=== PATIENT | female | born 1980 | race Caucasian/White ===

== ENCOUNTER 2016-06-10 12:25 | Outpatient (CLI) | payer MEDICAID ==
[2016-06-10] MEDS ORDERED: LACTATED RINGERS 500 ML IV ONE (13:26)
[2016-06-10 14:55] LABS: Bacteria,Urine 1+ /HPF (Negative); Bilirubin,Urine NEG (Negative); Blood,Urine NEG (Negative); Ketones,Urine TR mg/dL (Negative); Leukocyte Esterase,Urine NEG (Negative); Mucus,Urine FEW /HPF; Nitrite,Urine POS (Negative); Protein,Urine <15 mg/dL mg/dL (Negative); Urobilinogen,Urine < 2.0 mg/dL (<2.0)
== END 2016-06-10 15:53 | disposition home or self-care (01) ==
LOC: TRG 12:25
PROVIDERS: ATTEND Obstetrics & Gynecology Gynecology
DX: O47.03 False labor before 37 completed weeks of gestation, third trimester (principal); Z3A.31 31 weeks gestation of pregnancy
CPT/HCPCS: 59025; 81001; J7120

== ENCOUNTER 2016-09-15 21:53 | Emergency (ER) | payer MEDICAID ==
[2016-09-16 07:51] VITALS: BP 112/82
--- NOTE | 2016-09-16 08:51 | Emergency Department Report ---
ED ENT HPI - General Chief complaint: Sore Throat Stated complaint: THROAT PAIN Time Seen by Provider: 09/16/16 08:06 Source: patient Mode of arrival: Ambulatory Limitations: No Limitations - History of Present Illness Initial comments: PT c/o sore throat x 4 days. PT states someone else at home as been sick with sore throat and cough. Pt denies other symptoms like fever, cough, congestion. PT has not taken anything for her symptoms. MD complaint: sore throat Onset/Timin -: Gradual, days(s) Severity scale (0 -10): 6 Consistency: constant Improves with: none Worsens with: swallowing, eating Associated Symptoms: pain with swallowing, sore throat. denies: fever, cough - Related Data Home Medications Medication Instructions Recorded Confirmed Last Taken metroNIDAZOLE [Flagyl] 500 mg PO BID 06/25/15 07/25/16 Unknown Previous Rx's Medication Instructions Recorded Last Taken Type Ferrous Sulfate [Feosol 325 MG tab] 325 mg PO BID #60 tablet 07/26/16 Unknown Rx Ibuprofen [Motrin 600 MG tab] 600 mg PO Q6HR #30 tablet 07/26/16 Unknown Rx Vit-Fe Fumar-FA [ 1 each PO QDAY #30 tablet 07/26/16 Unknown Rx Vitamin] Ibuprofen [Motrin] 600 mg PO Q8H PRN #20 tablet 09/16/16 Unknown Rx Allergies Allergy/AdvReac Type Severity Reaction Status Date / Time No Known Allergies Allergy Verified 06/21/15 09:56 ED Dental HPI - General Chief complaint: Sore Throat Stated complaint: THROAT PAIN Time Seen by Provider: 09/16/16 08:06 Source: patient Mode of arrival: Ambulatory Limitations: No Limitations - Related Data Home Medications Medication Instructions Recorded Confirmed Last Taken metroNIDAZOLE [Flagyl] 500 mg PO BID 06/25/15 07/25/16 Unknown Previous Rx's Medication Instructions Recorded Last Taken Type Ferrous Sulfate [Feosol 325 MG tab] 325 mg PO BID #60 tablet 07/26/16 Unknown Rx Ibuprofen [Motrin 600 MG tab] 600 mg PO Q6HR #30 tablet 07/26/16 Unknown Rx Vit-Fe Fumar-FA [ 1 each PO QDAY #30 tablet 07/26/16 Unknown Rx Vitamin] Ibuprofen [Motrin] 600 mg PO Q8H PRN #20 tablet 09/16/16 Unknown Rx Allergies Allergy/AdvReac Type Severity Reaction Status Date / Time No Known Allergies Allergy Verified 06/21/15 09:56 ED Review of Systems ROS: Stated complaint: THROAT PAIN Other details as noted in HPI Comment: All other systems reviewed and negative Constitutional: denies: chills, fever ENT: throat pain. denies: ear pain, congestion Respiratory: denies: cough Cardiovascular: denies: chest pain ED Past Medical Hx - Past Medical History Previous Medical History?: Yes Hx Hypertension: No Hx Congestive Heart Failure: No Hx Diabetes: No Hx Deep Vein Thrombosis: No Hx Renal Disease: No Hx Sickle Cell Disease: No Hx Seizures: No Hx Asthma: No Hx COPD: No Additional medical history: bacterial meningitis - Surgical History Past Surgical History?: No - Social History Smoking Status: Never Smoker Substance Use Type: None - Medications Home Medications: Home Medications Medication Instructions Recorded Confirmed Last Taken Type metroNIDAZOLE [Flagyl] 500 mg PO BID 06/25/15 07/25/16 Unknown History Ferrous Sulfate [Feosol 325 MG tab] 325 mg PO BID #60 tablet 07/26/16 Unknown Rx Ibuprofen [Motrin 600 MG tab] 600 mg PO Q6HR #30 tablet 07/26/16 Unknown Rx Vit-Fe Fumar-FA [ 1 each PO QDAY #30 tablet 07/26/16 Unknown Rx Vitamin] Ibuprofen [Motrin] 600 mg PO Q8H PRN #20 tablet 09/16/16 Unknown Rx ED Physical Exam - General Limitations: No Limitations General appearance: alert, in no apparent distress - Head Head exam: Present: atraumatic, normocephalic, normal inspection - Eye Eye exam: Present: normal appearance, PERRL, EOMI. Absent: conjunctival injection Pupils: Present: normal accommodation - ENT ENT exam: Present: normal exam, normal orophraynx, mucous membranes moist, TM's normal bilaterally, normal external ear exam - Expanded ENT Exam Expanded Mouth exam: Absent: drooling, trismus Throat exam: Negative: tonsillar erythema, tonsillomegaly, tonsillar exudate, R peritonsillar mass, L peritonsillar mass - Neck Neck exam: Present: normal inspection - Respiratory Respiratory exam: Present: normal lung sounds bilaterally. Absent: respiratory distress, wheezes, chest wall tenderness - Cardiovascular Cardiovascular Exam: Present: regular rate, normal rhythm, normal heart sounds - Extremities Exam Extremities exam: Present: normal inspection, full ROM, normal capillary refill - Back Exam Back exam: Present: normal inspection - Neurological Exam Neurological exam: Present: alert, oriented X3 - Psychiatric Psychiatric exam: Present: normal affect, normal mood - Skin Skin exam: Present: warm, dry, intact, normal color ED Course Vital Signs 09/15/16 09/16/16 22:20 07:36 Temperature 97.8 F 97.5 F L Pulse Rate 82 62 Respiratory 18 18 Rate Blood Pressure 108/44 112/82 O2 Sat by Pulse 100 98 Oximetry - Reevaluation(s) Reevaluation #1: 09/16/16 09:20 PT's mother aware of rapid strep results and plan of care. No questions at this time. - Pulse Oximetry Interpretation Digit-Finger Initial Pulse Oximetry Readin Actions Taken: none ED Medical Decision Making - Differential Diagnosis strep pharyngitis, uri Critical Care Time: No Critical care attestation.: If time is entered above; I have spent that time in minutes in the direct care of this critically ill patient, excluding procedure time. ED Disposition Clinical Impression: Pharyngitis Qualifiers: Pharyngitis/tonsillitis etiology: unspecified etiology Qualified Code(s): J02.9 - Acute pharyngitis, unspecified Disposition: DC- TO HOME OR SELFCARE Is pt being admited?: No Does the pt Need Aspirin: No Condition: Stable Instructions: Pharyngitis (ED) Prescriptions: Ibuprofen [Motrin] 600 mg PO Q8H PRN #20 tablet PRN Reason: Pain Referrals: PRIMARY MD RAFFI [Primary Care Provider] - 3-5 Days LUANA OSULLIVAN MD [Staff Physician] - 3-5 Days [facility] [Outside] - 3-5 Days Forms: Work/School Release Form(ED) Time of Disposition: 09:21
[2016-09-16] MEDS ORDERED: TYLENOL PO ONE (08:59)
== END 2016-09-16 09:57 | disposition home or self-care (01) ==
LOC: ED 21:53
DX: J02.9 Acute pharyngitis, unspecified (principal)
CPT/HCPCS: 87116; 87430; 99282

== ENCOUNTER 2017-04-15 08:28 | Emergency (ER) | payer MEDICAID, OTHER ==
[2017-04-15 09:43] VITALS: BP 107/56
[2017-04-15 10:59] LABS: Bacteria,Urine 1+ /HPF (Negative); Bilirubin,Urine NEG (Negative); Blood,Urine NEG (Negative); Color,Urine Yellow (Yellow); Mucus,Urine 1+ /HPF; Nitrite,Urine NEG (Negative); Urobilinogen,Urine < 2.0 mg/dL (<2.0)
--- NOTE | 2017-04-15 11:46 | Emergency Department Report ---
ED Dysuria HPI - HPI Chief Complaint: Urogenital-Female Stated Complaint: BLADDER INFECTION Time Seen by Provider: 04/15/17 11:15 Severity: Mild Symptoms: Dysuria: Yes, Frequency: No, Suprapubic Pain: No, Flank Pain: Yes (l) , Fever: No, Hematuria: No, Abdominal Pain: No, Previous UTI's: Yes ED Review of Systems ROS: Stated complaint: BLADDER INFECTION Other details as noted in HPI Comment: All other systems reviewed and negative Constitutional: no symptoms reported Eyes: as per HPI ENT: as per HPI Respiratory: no symptoms reported Cardiovascular: as per HPI Endocrine: no symptoms reported Gastrointestinal: as per HPI Genitourinary: dysuria, discharge (thick white discharge), other (24 weeks ). denies: frequency, hematuria Musculoskeletal: as per HPI, other Skin: as per HPI Neurological: as per HPI Psychiatric: as per HPI Hematological/Lymphatic: as per HPI ED Past Medical Hx - Past Medical History Previous Medical History?: Yes Hx Hypertension: No Hx Congestive Heart Failure: No Hx Diabetes: No Hx Deep Vein Thrombosis: No Hx Renal Disease: No Hx Sickle Cell Disease: No Hx Seizures: No Hx Asthma: No Hx COPD: No Additional medical history: bacterial meningitis, Vaginal dleivery x 6; patient has been this is the ninth time she has 6 living children and has had 2 miscarriages. She is here with her boyfriend who is 10 years younger than her. - Surgical History Past Surgical History?: No - Social History Smoking Status: Former Smoker Substance Use Type: Non Opiate Pain, Prescribed - Medications Home Medications: Home Medications Medication Instructions Recorded Confirmed Last Taken Type Vit-Fe Fumar-FA [ 1 each PO QDAY #30 tablet 07/26/16 Unknown Rx Vitamin] Dysuria Exam - Exam General: Vital signs noted. No distress. Alert and acting appropriately. Exam: Yes Moist Mucous Membranes, No CVA Tenderness, No Abdominal Tenderness, No Rigidity or Guarding Exam: Pelvic exam completed. There is no adnexal tenderness or mass. No cervical motion motion tenderness. Os is closed. There is a thick white discharge at the cervix. No lesions are noted of the vaginal area or cervix. Labs: Lab Results 04/15/17 Range/Units 10:16 Urine Color Yellow (Yellow) Urine Turbidity Clear (Clear) Urine pH 5.0 (5.0-7.0) Ur Specific [place] 1.022 (1.003-1.030) Urine Protein 30 mg/dl (Negative) mg/dL Urine Glucose (UA) >=500 (Negative) mg/dL Urine Ketones Tr (Negative) mg/dL Urine Blood Neg (Negative) Urine Nitrite Neg (Negative) Urine Bilirubin Neg (Negative) Urine Urobilinogen < 2.0 (<2.0) mg/dL Ur Leukocyte Esterase Tr (Negative) Urine WBC (Auto) 2.0 (0.0-6.0) /HPF Urine RBC (Auto) 3.0 (0.0-6.0) /HPF U Epithel Cells (Auto) 1.0 (0-13.0) /HPF Urine Bacteria (Auto) 1+ (Negative) /HPF Urine Mucus 1+ /HPF ED Course Vital Signs 04/15/17 09:38 Temperature 97.9 F Pulse Rate 103 H Respiratory 18 Rate Blood Pressure 107/56 O2 Sat by Pulse 98 Oximetry - Reevaluation(s) Reevaluation #1: 04/15/17 12:21 Impression presents to the emergency room today with complaints of dysuria on urination. She is 24 weeks . She sees self side CHEMICAL DEPENDENCY NURSE. She last saw him 2 weeks ago. She has also seen well care in [facility] more recently for her dysuria. The total her that she did not have a UTI but they put her on Macrobid. She is take the Macrobid and the symptoms are no better. She also reports thick white vaginal discharge which initially states she said she thought was yeast but then said perhaps it was BV which she has had before. She also reports having been on steroids recently for lice in her home. She denies vaginal bleeding or abdominal pain. heart tones normal. Baby is moving as it normally does. There is no abdominal pain. She does state at times she has pain that radiates from her bladder along her left flank. Denies hematuria. When asked about her partner and symptoms patient very quickly interjected for him that he is not having symptoms. Patient's vital signs are stable she's nontoxic nonfebrile no CVA tenderness non -ill-appearing and ambulatory. Reevaluation #2: 04/15/17 12:34 dc instructions provided ED Medical Decision Making - Medical Decision Making UA noted. Wet prep noted with polymorphic nuclear cells. No yeast. Less than 20% clue cells. GC Chlamydia culture sent. Treat empirically for STD. When patient's reported history of being prone to yeast infections with antibiotics we'll give her 1 Diflucan. - Differential Diagnosis rule out UTI versus STD versus kidney stone Critical care attestation.: If time is entered above; I have spent that time in minutes in the direct care of this critically ill patient, excluding procedure time. ED Disposition Clinical Impression: Vaginitis, Disposition: DC- TO HOME OR SELFCARE Is pt being admited?: No Does the pt Need Aspirin: No Condition: Stable Instructions: Safe Sex (ED), Vaginitis (ED) Additional Instructions: Please see her CHEMICAL DEPENDENCY NURSE doctor this week so that he can reexamine him and make sure that she responded to the medications. Let your CHEMICAL DEPENDENCY NURSE doctor know that she was seen here in the emergency room. He can obtain the test results. Let him know that she will treated here with medications both orally and a shot ; since you failed the macrobid treatment and based on test results. Safe sex. Eat yogurt and drink buttermilk with active yeast cultures to prevent a yeast infection from the antibiotics that you've been on. Take a vitamin no alcohol or drugs Return to the emergency room for vaginal bleeding abdominal pain or fever. Referrals: PRIMARY CARE,MD [Primary Care Provider] - 3-5 Days Time of Disposition: 12:25
[2017-04-15] MEDS ORDERED: ROCEPHIN IM ONE (12:11)
[2017-04-15] MEDS ORDERED: XYLOCAINE 1% MPF 5 mL INFILTRATI ONE (12:11)
[2017-04-15] MEDS ORDERED: ZITHROMAX PO ONE (12:12)
[2017-04-15] MEDS ORDERED: DIFLUCAN PO ONE (13:00)
== END 2017-04-15 13:21 | disposition home or self-care (01) ==
LOC: ED 08:28
DX: O23.592 Infection of other part of genital tract in pregnancy, second trimester (principal); Z3A.24 24 weeks gestation of pregnancy; Z87.891 Personal history of nicotine dependence
CPT/HCPCS: 81001; 87086; 87210; 87591; 96372; 99284; J0696

== ENCOUNTER 2017-06-30 18:20 | Inpatient (IN) | payer OTHER ==
[2017-06-30] MEDS ORDERED: POLYCILLIN/NS 2 GM/100 ML 2 GM/100 ML BAG IV ONE (19:00)
[2017-06-30] MEDS ORDERED: SUBLIMAZE IV PRN (19:00)
[2017-06-30] MEDS ORDERED: LACTATED RINGERS 1,000 ML IV SCH ×2 (19:00→20:00)
[2017-06-30 19:05] LABS: Basophils % (Auto) 0.2 % (0.0-1.8); Eosinophils # (Auto) 0.1 K/mm3 (0.0-0.4); Eosinophils % (Auto) 0.6 % (0.0-4.3); Hematocrit 32.4 % (30.3-42.9); Hemoglobin 10.8 gm/dl (10.1-14.3); Lymphocytes # (Auto) 1.7 K/mm3 (1.2-5.4); Lymphocytes % (Auto) 17.5 % (13.4-35.0); Mean Corpuscular HGB Conc 33 % (30-34); Mean Corpuscular Hemoglobin 27 pg (28-32); Mean Corpuscular Volume 80 fl (79-97); Monocytes # (Auto) 0.9 K/mm3 (0.0-0.8); Platelet Count 273 K/mm3 (140-440); Red Blood Count 4.03 M/mm3 (3.65-5.03); Red Cell Distribution Width 15.2 % (13.2-15.2)
[2017-06-30] MEDS ORDERED: PITOCin/NS 20 UNIT/1000ML DRIP 20,000 MILLIUNITS/1,000 ML BAG IV ONE (19:33)
[2017-06-30] MEDS ORDERED: ePHEDrine SULFATE ONE (19:33)
[2017-06-30] MEDS ORDERED: BRETHINE IVP PRN (19:44)
[2017-06-30] MEDS ORDERED: BRETHINE SUB-Q PRN (19:44)
[2017-06-30] MEDS ORDERED: XYLOCAINE 2% INFILTRATI ONE (19:44)
[2017-06-30] MEDS ORDERED: MINERAL OIL PO PRN (19:44)
[2017-06-30] MEDS ORDERED: ePHEDrine SULFATE IV PRN ×2 (19:44→19:48)
[2017-06-30] MEDS ORDERED: STADOL IV PRN (19:44)
--- NOTE | 2017-06-30 19:44 | History and Physical Report ---
History of Present Illness Date of examination: 06/30/17 Date of admission: 06/30/17 18:38 Chief complaint: Labor History of present illness: Pt is a 36yo HF EDC 07/10/17; EGA 38 4/7 weeks presents to L&D complaining of RUC's q 3-4 mins. She received care at [facility]; however records are not available and GBS is unknown. Past History Past Medical History: no pertinent history Past Surgical History: no surgical history Family/Genetic History: none Social history: no significant social history, single - Obstetrical History Expected Date of Delivery: 07/10/17 Actual Gestation: 38 Week(s) 4 Day(s) : 9 Medications and Allergies Allergies Allergy/AdvReac Type Severity Reaction Status Date / Time No Known Allergies Allergy Verified 06/21/15 09:56 Home Medications Medication Instructions Recorded Confirmed Last Taken Type No Known Home Medications [No 06/30/17 06/30/17 Unknown History Reported Home Medications] Active Meds: Active Medications Fentanyl (Sublimaze) 100 mcg IV Q2H PRN PRN Reason: Labor Pain Last Admin: 06/30/17 19:10 Dose: 100 mcg Lactated Ringer's (Lactated Ringers) 1,000 mls @ 125 mls/hr IV DIRECT PATRICIA Lactated Ringer's (Lactated Ringers) 1,000 mls @ 999 mls/hr IV BOLUS ONE Stop: 06/30/17 21:00 Last Admin: 06/30/17 18:50 Dose: 999 mls/hr Ampicillin Sodium (Polycillin/Ns 2 Gm/100 Ml) 2 gm in 100 mls @ 100 mls/hr IV ONCE ONE; Protocol Stop: 06/30/17 19:59 Review of Systems All systems: negative - Vital Signs Vital signs: Vital Signs Pulse BP 89 110/68 06/30/17 18:34 06/30/17 18:34 Temp Pulse Resp BP Pulse Ox 98.2 F 82 20 101/59 99 06/30/17 18:51 06/30/17 19:42 06/30/17 18:51 06/30/17 19:12 06/30/17 19:42 - Physical Exam Breasts: Positive: deferred Cardiovascular: Regular rate Lungs: Positive: Clear to auscultation Abdomen: Positive: normal appearance Genitourinary (Female): Positive: normal external genitalia Vagina: Positive: normal moisture Uterus: Positive: enlarged Extremities: Positive: normal - Obstetrical FHR: category 1 Uterine Contraction Monitor Mode: External Cervical Dilatation: 5 Cervical Effacement Percentage: 100 station: -2 Uterine Contraction Pattern: Regular Uterine Tone Measurement Phase: Contraction Uterine Contraction Intensity: Moderate Results Result Diagrams: 06/30/17 18:30 Abnormal lab results 06/30/17 Range/Units 18:30 MCH 27 L (28-32) pg Cassia % (Auto) 10.0 H (0.0-7.3) % Cassia # 0.9 H (0.0-0.8) K/mm3 Seg Neutrophils % 71.7 H (40.0-70.0) % All other labs normal. Assessment and Plan - Patient Problems (1) 38 weeks gestation of Onset Date: 06/30/17 Current Visit: No Status: Resolved Plan to address problem: A: IUP @ 38 4/7 weeks in labor Unknown GBS P: Admit to L&D for expectant vaginal delivery IV Ampicillin Obtain records
[2017-06-30] MEDS ORDERED: NARCAN 2 MG/2 ML IV PRN (19:48)
[2017-06-30] MEDS ORDERED: LACTATED RINGERS 1,000 ML IV ONE (20:00)
[2017-06-30] MEDS ORDERED: fentaNYL-BUPIV 2 MCG/ML-0.125% 200 MCG/100 ML BAG EPIDURAL SCH (20:00)
[2017-06-30] MEDS ORDERED: PITOCin/NS 20 UNIT/1000ML DRIP 20 UNITS/1,000 ML BAG IV SCH ×2 (20:00→21:00)
[2017-06-30] MEDS ORDERED: PITOCin/NS 30 UNIT/500ML 30 UNITS/500 ML BAG IV SCH (20:00)
[2017-06-30] MEDS ORDERED: XYLOCAINE MPF 2% ONE (20:05)
--- NOTE | 2017-06-30 20:18 | Anesthesia Consultation ---
Anesthesia Consult and Med Hx Date of service: 06/30/17 - Pulmonary Hx Asthma: No COPD: No Hx Pneumonia: No - Cardiovascular System Hx Hypertension: No - Central Nervous System Hx Seizures: No Hx Psychiatric Problems: No - Endocrine Hx Renal Disease: No Hx End Stage Renal Disease: No Hx Hypothyroidism: No Hx Hyperthyroidism: No - Hematic Hx Anemia: No Hx Sickle Cell Disease: No - Other Systems Hx Alcohol Use: No
--- NOTE | 2017-06-30 20:29 | Procedure Note ---
OB Delivery Note - Delivery Date of Delivery: 06/30/17 Surgeon: REYES BEE Estimated blood loss: 100cc - Vaginal Delivery presentation: vertex Delivery position: OA Intrapartum events: precipitous labor- <3hr Delivery induction: none Delivery augmentation: rupture of membranes Delivery monitor: external FHT, external uterine Route of delivery: Delivery placenta: spontaneous Delivery cord: 3 umbilical vessels Episiotomy: none Delivery laceration: none Anesthesia: epidural Delivery comments: Infant delivered OA and placed on Mom's chest for [id number] bonding and delayed cord clamping - Infant A at 1 minute: 8 at 5 minutes: 9 Gender: Female (2883gms)
[2017-06-30] MEDS ORDERED: ZOFRAN IV PRN (20:31)
[2017-06-30] MEDS ORDERED: PHENERGAN PR PRN (20:31)
[2017-06-30] MEDS ORDERED: LANSINOH TP PRN (20:31)
[2017-06-30] MEDS ORDERED: TUCKS PAD TP PRN (20:31)
[2017-06-30] MEDS ORDERED: PHENERGAN PO PRN (20:31)
[2017-06-30] MEDS ORDERED: DULCOLAX PR PRN (20:31)
[2017-06-30] MEDS ORDERED: TYLENOL PO PRN (20:31)
[2017-06-30] MEDS ORDERED: MILK OF MAGNESIA PO PRN (20:31)
[2017-06-30] MEDS ORDERED: BENADRYL PO PRN (20:31)
[2017-06-30] MEDS ORDERED: SODIUM CHLORIDE FLUSH SYRINGE 10 ML IV NR (21:00)
[2017-06-30] MEDS: NORCO 5/325 PO PRN (23:23)
[2017-06-30] MEDS: MOTRIN PO SCH (23:24)
[2017-06-30] MEDS ORDERED: AMPICILLIN/NS 1 GM/50 ML 1 GM/50 ML BAG IV SCH (23:46)
[2017-07-01] MEDS: MOTRIN PO SCH ×4 (05:12→23:31)
[2017-07-01] MEDS ORDERED: M-M-R II VACCINE SUB-Q ONE (06:00)
[2017-07-01] MEDS ORDERED: BOOSTRIX IM ONE (06:00)
[2017-07-01] MEDS: NORCO 5/325 PO PRN ×3 (07:17→19:56)
--- NOTE | 2017-07-01 09:40 | Progress Note ---
Assessment and Plan - Patient Problems (1) 38 weeks gestation of Onset Date: 06/30/17 Current Visit: No Status: Resolved (2) (normal spontaneous vaginal delivery) Onset Date: 07/01/17 Current Visit: No Status: Resolved Plan to address problem: A: S/P - PPD #1 Doing well Asymptomatic anemia - stable P: May go home tomorrow. Subjective - Subjective Date of service: 07/01/17 Principal diagnosis: s/p - PPD #1 Interval history: Pt is feeling well without complaints. Bleeding improved. Patient reports: appetite normal, voiding normally, pain well controlled, ambulating normally : doing well, nursing well Objective - Vital Signs Latest vital signs: Vital Signs Temp Pulse Resp BP BP Pulse Ox 07/01/17 07:17 16 07/01/17 05:12 18 07/01/17 04:25 98.0 F 62 20 102/56 07/01/17 00:24 18 07/01/17 00:23 18 07/01/17 00:15 98.9 F 69 20 116/53 06/30/17 23:24 18 06/30/17 23:23 18 06/30/17 22:55 98.2 F 70 20 98/52 06/30/17 21:34 70 18 104/55 104/55 06/30/17 21:19 75 18 113/56 113/56 06/30/17 20:49 87 18 113/58 113/58 06/30/17 20:34 77 18 138/50 138/50 06/30/17 20:19 83 117/71 06/30/17 20:17 83 99 06/30/17 20:12 79 100 06/30/17 20:07 75 99 06/30/17 20:02 83 99 06/30/17 19:57 86 99 06/30/17 19:52 80 94 06/30/17 19:50 79 92 06/30/17 19:47 78 100 06/30/17 19:44 93 06/30/17 19:42 82 99 06/30/17 19:12 80 101/59 06/30/17 18:51 98.2 F 100 H 20 94 06/30/17 18:38 100 H 94 06/30/17 18:36 84 95 06/30/17 18:34 89 110/68 Intake and Output 06/30/17 07/01/17 07/01/17 22:59 06:59 14:59 Intake Total 480 Output Total 1000 Balance -520 Intake: Oral 480 Output: Urine 1000 Void 1000 Other: Total, Intake Amount 240 Total, Output Amount 600 Weight 62.596 kg Estimated Blood Loss 100 - Exam Breasts: Present: deferred Cardiovascular: Present: Regular rate Lungs: Present: Clear to auscultation Abdomen: Present: normal appearance Uterus: Present: normal, firm, fundal height below umbilicus Extremities: Present: normal - Labs Labs: Abnormal lab results 06/30/17 Range/Units 18:30 MCH 27 L (28-32) pg Rich % (Auto) 10.0 H (0.0-7.3) % Rich # 0.9 H (0.0-0.8) K/mm3 Seg Neutrophils % 71.7 H (40.0-70.0) % Laboratory Tests 06/30/17 06/30/17 07/01/17 18:30 18:30 09:15 WBC 9.4 RBC 4.03 Hgb 10.8 10.8 Hct 32.4 32.9 MCV 80 MCH 27 L MCHC 33 RDW 15.2 Plt Count 273 Lymph % (Auto) 17.5 Rich % (Auto) 10.0 H Eos % (Auto) 0.6 Baso % (Auto) 0.2 Lymph # 1.7 Rich # 0.9 H Eos # 0.1 Baso # 0.0 Seg Neutrophils % 71.7 H Seg Neutrophils # 6.8 Blood Type O POSITIVE Antibody Screen Negative
[2017-07-01] MEDS ORDERED: PRENATAL VITAMIN PO SCH (10:00)
[2017-07-01 10:19] LABS: Hematocrit 32.9 % (30.3-42.9); Hemoglobin 10.8 gm/dl (10.1-14.3)
[2017-07-01] MEDS: COLACE PO SCH ×2 (10:41→21:26)
[2017-07-01] MEDS: FEOSOL PO SCH ×2 (10:41→21:26)
[2017-07-01] MEDS: SENOKOT S PO SCH ×2 (10:41→23:00)
--- NOTE | 2017-07-01 11:40 | Discharge Summary ---
Providers - Providers Date of Admission: 06/30/17 18:38 Date of discharge: 07/02/17 Attending physician: REYES BEE Primary care physician: REYES BEE Hospitalization Reason for admission: active labor, IUP at term Delivery: Episiotomy: none Laceration: none Other procedures: none complications: none Discharge diagnosis: IUP at term delivered [place] baby: female Hospital course: Unremarkable. Condition at discharge: Good Disposition: DC-01 TO HOME OR SELFCARE - Discharge Diagnoses (1) 38 weeks gestation of Status: Resolved (2) (normal spontaneous vaginal delivery) Status: Resolved Plan - Discharge Medications Prescriptions: Ferrous Sulfate [Feosol 325 MG tab] 325 mg PO BID #60 tablet Ibuprofen [Motrin 600 MG tab] 600 mg PO Q6H #30 tablet Vit-Fe Fumar-FA [ Vitamin] 1 each PO QDAY #30 tablet - Provider Discharge Summary Activity: routine, no sex for 6 weeks, no heavy lifting 4 weeks, no strenuous exercise Diet: routine Instructions: routine Additional instructions: [] Smoking cessation referral if applicable(refer to patient education folder for contact #) [] Refer to [facility] Booklet Call your doctor immediately for: * Fever > 100.5 * Heavy vaginal bleeding ( >1 pad per hour) * Severe persistent headache * Shortness of breath * Reddened, hot, painful area to leg or breast * Drainage or odor from incision. * Keep incision clean and dry at all times and follow doctor's instructions regarding bathing/showering - Follow up plan Follow up: REYES BEE MD [Primary Care Provider] - 6 Weeks
[2017-07-01] MEDS ORDERED: PEPCID PO PRN (15:30)
[2017-07-02] MEDS: NORCO 5/325 PO PRN (04:26)
[2017-07-02] MEDS: MOTRIN PO SCH ×2 (05:37→19:50)
[2017-07-02] MEDS ORDERED: HABITROL TD SCH (18:00)
[2017-07-02 18:59] VITALS: BP 97/48
== END 2017-07-02 21:15 | disposition home or self-care (01) | DRG 775 ==
LOC: TRG 18:20 → LD 18:38 → OB 23:17
PROVIDERS: ADMIT Obstetrics & Gynecology; ATTEND Obstetrics & Gynecology
PROC: 10E0XZZ Delivery of Products of Conception, External Approach (ICD-10-PCS; principal; 2017-06-30)
PROC: 3E0R3BZ Introduction of Anesthetic Agent into Spinal Canal, Percutaneous Approach (ICD-10-PCS; 2017-06-30)
PROC: 00HU33Z Insertion of Infusion Device into Spinal Canal, Percutaneous Approach (ICD-10-PCS; 2017-06-30)
PROC: 3E0234Z Introduction of Serum, Toxoid and Vaccine into Muscle, Percutaneous Approach (ICD-10-PCS; 2017-07-01)
DX: O62.3 Precipitate labor (principal); Z3A.38 38 weeks gestation of pregnancy; Z37.0 Single live birth; Z23 Encounter for immunization; O90.81 Anemia of the puerperium; D64.9 Anemia, unspecified
CPT/HCPCS: 36415; 59025; 85014; 85018; 85025; 86592; 86850; 86900; 86901; 99211; 99406; G0463; J0290; J2590; J3010; J7120